=== PATIENT | male | born 1955 | race Caucasian/White ===

== ENCOUNTER 2018-12-11 22:21 | Emergency (ER) | payer MEDICARE, OTHER ==
[~2018-12-11 22:21] MED LIST: 50% Dextrose in Water 50 ML Syringe ONE; EPINEPHrine 1:10,000 1 MG/10 ML Syringe ONE
--- NOTE | 2018-12-11 23:17 | EDM.PDOC ---
ED HPI GENERAL MEDICAL PROBLEM - General Chief Complaint: CPR in Progress Stated Complaint: [facility] Time Seen by Provider: 12/11/18 22:27 Source of Information: Reports: EMS, Family History Limitations: Reports: Altered Mental Status - History of Present Illness INITIAL COMMENTS - FREE TEXT/NARRATIVE: The patient presents by [facility] in cardiac arrest with CPR in progress. The patient's found him not breathing. She was gone for a few hours so his down time was not known. Police were on scene first and started CPR and put the AED on. No shock was advised. When EMS arrived shortly after they also found him pulses and apneic. They continued CPR, put an IV in the left forearm and put a Derrick Airway in. He did got into A-fib a few times. They defibrillated him a total of 3 times and gave him about 5 rounds of epinephrine. He did not regain a pulse. The patient has a history of CABG and 5 stents. He quit smoking in 1994. He is diabetic and he was overweight. Onset: Sudden Associated Symptoms: Reports: No Other Symptoms - Related Data Allergies Allergy/AdvReac Type Severity Reaction Status Date / Time No Known Allergies Allergy Verified 05/25/18 19:15 Home Meds: Home Meds Aspirin [Keith Chewable Aspirin] 81 mg PO DAILY 11/03/14 [History] Finasteride [Proscar] 5 mg PO DAILY 11/03/14 [History] Isosorbide Mononitrate [Imdur] 60 mg PO DAILY 11/03/14 [History] Metoprolol Succinate [Toprol XL] 50 mg PO DAILY 11/03/14 [History] Multivitamin [Multi-Vitamin Daily] 1 each PO DAILY 11/03/14 [History] Nitroglycerin [Nitrostat] 0.4 mg SL ASDIRECTED 11/03/14 [History] Prasugrel [Effient] 10 mg PO DAILY 11/03/14 [History] Ramipril [Altace] 10 mg PO BEDTIME 11/03/14 [History] Ranolazine [Ranexa] 500 mg PO BID 11/03/14 [History] Rosuvastatin [Crestor] 20 mg PO DAILY 11/03/14 [History] Spironolactone [Aldactone] 25 mg PO DAILY 11/03/14 [History] Insulin Glargine,Hum.Rec.Anlog [Toujeo Solostar] 100 unit SQ BEDTIME 12/14/14 [ History] Diltiazem [Cardizem CD] 120 mg PO DAILY 10/27/15 [History] Insulin Aspart [NovoLOG] See Protocol SUBCUT ACBED 10/27/15 [History] Past Medical History Other HEENT History: reading glasses Cardiovascular History: Reports: CAD, High Cholesterol, Hypertension, Stents Other Cardiovascular History: ischemic heart disease, stents x 5, angina Respiratory History: Reports: Sleep Apnea Other Respiratory History: dypsnea on exertion Other Gastrointestinal History: elevated LFTs Genitourinary History: Reports: BPH Other Genitourinary History: erectile dysfunction Musculoskeletal History: Reports: Fracture Other Musculoskeletal History: L leg pain, arthritis, L carpal tunnel release Other Neuro History: dizziness Psychiatric History: Reports: Depression Endocrine/Metabolic History: Reports: Diabetes, Type II, Obesity/BMI 30+ - Past Surgical History HEENT Surgical History: Reports: Cataract Surgery Cardiovascular Surgical History: Reports: Coronary Artery Bypass GI Surgical History: Reports: Appendectomy ED ROS GENERAL - Review of Systems Review Of Systems: Unable To Obtain ED EXAM, CPR - Physical Exam Exam: See Below Limited By: Altered Mental Status General Appearance: Obtunded Ears: Normal External Exam Nose: Normal Inspection Throat/Mouth: Other (Derrick Airway in place) Head: Atraumatic, Normocephalic Respiratory Chest: Other (Not breathing but equal breath sounds with ventilation ) Cardiovascular: Other (no pulse) GI/Abdominal Exam: Other (abdomen distended) Course - Re-Assessments/Exams Free Text/Narrative Re-Assessment/Exam: 12/11/18 23:18 A code blue was called and the patient was moved over to our cot. He had a derrick airway in. There was some emesis in the tube. RT was suctioning the tube. The patient had an IV in the left forearm. CPR was continued. He was due for an epinephrine so we gave him a dose. He was hooked up to our monitor and he was in asystole. The patient was down about 45 minutes from when EMS arrived and unknown down time before that. I stopped efforts and I pronounced him at 22:23. We had a moment of silence for the patient. I called Dr Ferris our neurosurgery physician and he released the body. I talked with the family and brought them back to see Zach. Critical care time is 20 minutes. Departure - Departure Time of Disposition: 22:23 Disposition: 20 Preliminary Cause of *Q: Cardiac Arrest Clinical Impression: Cardiac arrest - Discharge Information Referrals: Zahraa Alvarez MD [Primary Care Provider] - Forms: ED Department Discharge
== END 2018-12-12 14:45 | disposition expired ==
LOC: JD.ED 22:21
DX: I46.9 Cardiac arrest, cause unspecified (principal); I10 Essential (primary) hypertension; I25.10 Atherosclerotic heart disease of native coronary artery without angina pectoris; M19.90 Unspecified osteoarthritis, unspecified site; E11.9 Type 2 diabetes mellitus without complications; E66.9 Obesity, unspecified; Z95.5 Presence of coronary angioplasty implant and graft; Z98.49 Cataract extraction status, unspecified eye; Z90.49 Acquired absence of other specified parts of digestive tract; Z79.4 Long term (current) use of insulin; Z95.1 Presence of aortocoronary bypass graft; Z79.899 Other long term (current) drug therapy; Z79.82 Long term (current) use of aspirin; Z87.891 Personal history of nicotine dependence
CPT/HCPCS: 92950; 96374; 99283; 99285-25